=== PATIENT | female | born 1965 | race Caucasian/White ===

== ENCOUNTER 2023-08-23 16:23 | Emergency (ER) | payer OTHER, SELFPAY ==
[2023-08-23 16:36] VITALS: BP 121/68; PULSE 80; RESP 14; TEMP 36.6; O2SAT 100
--- NOTE | 2023-08-23 16:38 | ED.FEMALEGU ---
HPI - Female Genitourinary General Chief complaint: Urogenital-Female Stated complaint: uti symptoms Time Seen by Provider: 08/23/23 16:38 Source: patient Mode of arrival: ambulatory Limitations: no limitations History of Present Illness HPI Narrative: 58-year-old female presents with complaint of low back pain, low-grade fever, fatigue. Symptoms started yesterday. Patient reports similar symptoms with urinary tract infections. Patient is going out of town and wants to start antibiotic. Denies nausea vomiting. All systems reviewed and negative except as noted above. Related Data Home Medications Medication Instructions Recorded Confirmed ascorbate calcium (vitamin C) 500 1,000 mg PO DAILY 08/23/23 08/23/23 mg capsule atorvastatin 20 mg tablet mg 08/23/23 cholecalciferol (vitamin D3) 25 DAILY 08/23/23 mcg (1,000 unit) tablet collagen,hydrolysate 500 mg-biotin cap PO 08/23/23 08/23/23 800 mcg-ascorbic acid 50 mg capsule (Collagen 1500 Plus C) cranberry 1,000 mg capsule 1,260 mg PO 08/23/23 doxylamine succinate 25 mg tablet 25 mg PO HS 08/23/23 08/23/23 (Unisom (doxylamine)) glucosamine sulf dipot cap PO 08/23/23 chlr,msm,chond 550 mg-C 30 mg-jovanna 1 mg capsule (Glucosamine Chondroitin) metoprolol succinate 50 mg mg PO 08/23/23 tablet,extended release 24 hr multivit with minerals-iron 18 tablet PO 08/23/23 mg-folic ac 400 mcg-vit K 25 mcg tablet (Adults Multivitamin) Allergies Allergy/AdvReac Type Severity Reaction Status Date / Time amoxicillin [From Augmentin] AdvReac Vomiting Verified 08/23/23 16:38 clavulanic acid AdvReac Vomiting Verified 08/23/23 16:38 [From Augmentin] Review of Systems Review of Systems: CONSTITUTIONAL: reports fever, fatigue. Denies chills, or sweats. EYES: Denies visual changes, redness, or discharge. ENT: Denies rhinorrhea, congestion, sore throat, or otalgia. CARDIOVASCULAR: Denies chest pain, palpitations, or edema. RESPIRATORY: Denies cough or dyspnea. GASTROINTESTINAL: Denies abdominal pain, nausea, vomiting, or diarrhea. GENITOURINARY: Denies dysuria or hematuria. SKIN: Denies rash or itching. MUSCULOSKELETAL: Reports low back pain. Denies joint pain, or myalgia. NEUROLOGIC: Denies headache, numbness, or weakness. PSYCHIATRIC: Denies anxiety or depression. All other systems reviewed are negative, except as documented in HPI. PMFSH Comments At time of signature, agree with nursing past medical, surgical, social and family history. There is no relevant family history pertinent to the presenting complaint. Exam Narrative: GENERAL: This is a well-nourished, well-developed patient, in no apparent distress. HEAD: normocephalic, atraumatic. EYES: PERRL. Sclera clear/white. Vision is grossly intact. EARS: External ears normal NOSE: External nose normal NECK: Neck supple, non-tender without lymphadenopathy, masses or thyromegaly. CARDIOVASCULAR: Regular rate and rhythm without murmurs, gallops, or rubs. RESPIRATORY: Clear to auscultation. Breath sounds equal bilaterally. No wheezes, rales, or rhonchi. SKIN: warm, Dry, intact with no suspicious lesions or rash, good texture and turgor. NEURO: awake, alert, and oriented to person, place and time. There were no obvious focal neurologic abnormalities. EXTREMITIES: No joint tenderness, effusion, or edema noted. Course Course Level of Care: Express Care Visit Vital Signs Vital signs: Vital Signs Temperature 36.6 C 08/23/23 16:36 Pulse Rate 80 08/23/23 16:36 Respiratory Rate 14 08/23/23 16:36 Blood Pressure 121/68 08/23/23 16:36 Pulse Oximetry 100 08/23/23 16:36 Oxygen Delivery Room Air 08/23/23 16:36 Temperature 36.6 C 08/23/23 16:36 Pulse Rate 80 08/23/23 16:36 Respiratory Rate 14 08/23/23 16:36 Blood Pressure 121/68 08/23/23 16:36 Pulse Oximetry 100 08/23/23 16:36 Oxygen Delivery Room Air 08/23/23 16:36 reviewe
== END 2023-08-23 16:54 | disposition home or self-care (01) ==
PROVIDERS: Emergency Provider Nurse Practitioner Family; PCP Physician Assistant
DX: N39.0 Urinary tract infection, site not specified (principal); B96.20 Unspecified Escherichia coli [E. coli] as the cause of diseases classified elsewhere
CPT/HCPCS: 81003; 87077; 87086; 87088; 87186; 99203; G0463

== ENCOUNTER 2023-10-02 00:10 | Day surgery (SDC) | payer OTHER, SELFPAY ==
[2023-09-27 12:23] VITALS: BMI 27.5
--- NOTE | 2023-09-27 12:24 | PC.NURSE ---
Report to the Outpatient Waiting Room, entrance under the green pavilion located off [facility], at time _1030_ on date _[id number]_. Planned Procedure Time: _1230_. Time changes happen often and if your time is changed the preop area will call you the afternoon before. - You and your visitor will be asked to self-screen and do not enter if you have any COVID symptoms. - A mask is optional within the hospital at this time. Patients may have clear liquids (water, carbonated beverages, clear teas, apple juice) until 3 hours prior to surgery with a maximum of 20 ounces. - No food from midnight until time of surgery Take the following medications with a SIP of water the morning of surgery: __None DO NOT STOP ANY OF YOUR OTHER PRESCRIPTION MEDICATIONS PRIOR TO SURGERY ?EXCEPT THE FOLLOWING Medications to discontinue per physician Vitamins Date to take last smyl___[phone] Please no make-up, nail nepali, hairspray, perfume, deodorant, or body powder the day of surgery. No jewelry (including any body piercings) or valuables the day of surgery, leave them at home. Please take a shower or bath the night before, or the morning of, surgery with an antibacterial soap. Wear comfortable, loose fitting clothing. - Jewelry must be removed prior to entering the operating room. Rings and piercings that are not removed may be cut off. - The hospital will not accept responsibility for valuables. - Please leave all valuables, including medications, at home the day of surgery. If you are going home after surgery, a licensed jinriksha driver must drive you home. - NO public transportation without another adult if you receive anesthesia. - We recommend that an adult stay with you for 24 hours following discharge. - We also recommend that you do not drive, make important decision, drink alcoholic beverages, or take any drugs that were not prescribed by your health care provider for at least 24 hours after your discharge time. Follow any additional instructions given to you from your surgeon. If you or anyone in your household have experienced Covid symptoms in the past week, please notify your surgeon or the nurse liaison at the phone number below for possible testing. Telephone instructions given to ___Ivane___and asked if any additional questions and then verbalized understanding. Patient advised to call surgeon office or pre surgery nurse liaison [phone] if any additional questions.
--- NOTE | 2023-10-02 07:14 | WPDHPUPDATE1 ---
History and Physical Update Update Date/Time: 10/02/23 07:14 History and Physical has been reviewed, including an updated exam of the patient. There are NO changes in the patient's condition. Risks, benefits, and alternatives have been discussed and questions answered. Patient agrees to proceed with Hysteroscopy with D&C.
[2023-10-02 10:49] VITALS: BP 121/62; PULSE 69; RESP 20; TEMP 36.3; O2SAT 100
[2023-10-02] MEDS: ACETAMINOPHEN 500 MG TABLET 1000 MG PO (11:13)
[2023-10-02] MEDS: LACTATED RINGERS 1,000 ML 30 ML IV CONT (11:35)
[2023-10-02] MEDS: KETOROLAC 15 MG/ML VIAL (*BKC) IV PUSH (13:29)
--- NOTE | 2023-10-02 13:59 | P.OP_ITS ---
Procedure Note - Detailed Date of Procedure 10/02/23 Pre-op Diagnosis post menopausal bleeding Post-op Diagnosis Same (endometrial polyps) Procedure Performed Hysteroscopy with D&C Surgeon Kathy Emerson MD Anesthesia MAC Findings Uterus sounded to 8cm. Thin endometrial strip noted, but two small endometrial p olyps; arising from posterior wall and right/fundal area-- removed using the shaver. Bilateral tubal ostia visualized. Good hemostasis noted at end of case. Description of Procedure Hillary was taken to the operating room where she was placed under sedation without complications. She was then prepped and draped in the usual sterile fashion in the dorsal lithotomy position with her legs in low Adis stirrups. A time-out was performed and no perioperative antibiotics were indicated. A bivalve speculum was placed within the vagina where the cervix was easily identified. The anterior lip of the cervix was grasped with a single-tooth tenaculum. The cervix was then serially dilated to allow for the hysteroscope. The hysteroscope was advanced into the uterine cavity with the above findings noted. Using the Aveta tissue shaver, the two endometrial polyps were moved and sent to pathology. A curettage was then performed until a good uterine cry was felt throughout the uterus. The hysteroscope was once again advanced back into the uterus and thin lining was noted. Good hemostasis was noted. All instruments were removed from the vagina. Sponge, lap, instrument, and needle counts were correct at the end of the procedure. Patient was awoken from anesthesia and taken to recovery with plans of same-day discharge home. Estimated Blood Loss 5 IV Fluids 900 Pathology Yes (endometrial curetting's, endometrial polyps/shavings) Complications No immediate complications Condition Stable Disposition Same day [facility] Billing Surgery - Charge Forward: Surgery Billing
[2023-10-02 14:01] VITALS: BP 111/60; PULSE 66; RESP 12; O2SAT 100
[2023-10-02] MEDS: oxyCODONE HCL (*CRX) 5 MG TAB IR PO (14:23)
[2023-10-02 14:30] VITALS: BP 120/61; PULSE 66; RESP 16
[2023-10-02 15:00] VITALS: BP 125/57; PULSE 62; RESP 20
== END 2023-10-02 15:10 | disposition home or self-care (01) ==
PROVIDERS: PCP Physician Assistant; Visit Provider Obstetrics & Gynecology
PROC: 0U5B8ZZ Destruction of Endometrium, Via Natural or Artificial Opening Endoscopic (ICD-10-PCS; CPT 58563; principal; 2023-10-02 12:30)
DX: N84.0 Polyp of corpus uteri (principal); Z98.890 Other specified postprocedural states; Z90.49 Acquired absence of other specified parts of digestive tract; Z95.810 Presence of automatic (implantable) cardiac defibrillator; Z82.49 Family history of ischemic heart disease and other diseases of the circulatory system
CPT/HCPCS: 58558; 88305; A9270; J1100; J1885; J2250; J2405; J2704; J3010; J7120